=== PATIENT | female | born 1990 | race Two or more races ===

== ENCOUNTER → 2016-07-15 | Outpatient (CLI) | payer BC ==
[~2016-07-15] MED LIST: IBUP800T24 PO; SULF400T11; TRAM50TA2 PO
[2016-07-15 09:24] LABS: Basophils # (auto) 0 uL; Basophils % (auto) 0.5 % (0.0-2.0); Eosinophils # (auto) 0 uL; Eosinophils % (auto) 0.4 % (0.0-7.0); Hemoglobin 12.4 g/dL (12.2-16.2); Lymphocytes # (auto) 2.3 uL; Lymphocytes % (auto) 30.5 % (10.0-50.0); Mean Corpuscular Hemoglobin 29.8 pg (28.0-32.0); Mean Corpuscular Hgb Conc. 34.4 g/dL (32.0-36.0); Mean Corpuscular Volume 86.6 fL (80.0-100.0); Mean Platelet Volume 9.9 fL (7.4-10.4); Monocytes # (auto) 0.4 uL; Neutrophils # (auto) 4.7 uL; Neutrophils % (auto) 63.6 % (37.0-80.0); Platelet Count (auto) 229 10^3/uL (140-450); White Blood Cell 7.4 10^3/uL (4.4-10.8)
== END | disposition home or self-care (01) ==
LOC: LAB 08:39
PROVIDERS: ATTEND Obstetrics & Gynecology
DX: Z36 Encounter for antenatal screening of mother (principal); Z34.80 Encounter for supervision of other normal pregnancy, unspecified trimester; Z11.3 Encounter for screening for infections with a predominantly sexual mode of transmission
CPT/HCPCS: 36415; 81220; 83036; 85025; 86592; 86703; 86762; 86850; 86900; 86901; 87086; 87340

== ENCOUNTER → 2016-11-26 | Outpatient (CLI) | payer BC ==
[2016-11-26 08:40] LABS: Basophils # (auto) 0 uL; Basophils % (auto) 0.6 % (0.0-2.0); CONDITION Y; Eosinophils # (auto) 0.1 uL; Eosinophils % (auto) 0.8 % (0.0-7.0); Hematocrit 32.7 % (36.0-46.0); Hemoglobin 10.8 g/dL (12.2-16.2); Lymphocytes # (auto) 2.3 uL; Lymphocytes % (auto) 33.1 % (10.0-50.0); Mean Corpuscular Hemoglobin 27.5 pg (28.0-32.0); Mean Corpuscular Volume 83.4 fL (80.0-100.0); Mean Platelet Volume 9.8 fL (7.4-10.4); Monocytes # (auto) 0.4 uL; Monocytes % (auto) 5.3 % (0.0-12.0); Neutrophils # (auto) 4.2 uL; Neutrophils % (auto) 60.2 % (37.0-80.0); Platelet Count (auto) 272 10^3/uL (140-450); Red Cell Distribution Width 13.1 % (11.6-16.0); White Blood Cell 6.9 10^3/uL (4.4-10.8)
== END | disposition home or self-care (01) ==
LOC: LAB 08:16
PROVIDERS: ATTEND Obstetrics & Gynecology
DX: Z34.80 Encounter for supervision of other normal pregnancy, unspecified trimester (principal); O99.810 Abnormal glucose complicating pregnancy
CPT/HCPCS: 36415; 82951; 85025; 86850; 86900; 86901

== ENCOUNTER → 2016-12-23 | Outpatient (CLI) | payer BC ==
[2016-12-23 10:24] LABS: Basophils # (auto) 0 uL; Basophils % (auto) 0.5 % (0.0-2.0); CONDITION Y; DEFINITIVE SEE PRINTOUT; Eosinophils # (auto) 0 uL; Eosinophils % (auto) 0.4 % (0.0-7.0); Hematocrit 32.9 % (36.0-46.0); Hemoglobin 10.8 g/dL (12.2-16.2); Lymphocytes # (auto) 2.5 uL; Lymphocytes % (auto) 28.1 % (10.0-50.0); Mean Corpuscular Hemoglobin 26.5 pg (28.0-32.0); Mean Corpuscular Hgb Conc. 32.8 g/dL (32.0-36.0); Mean Corpuscular Volume 80.8 fL (80.0-100.0); Mean Platelet Volume 10.5 fL (7.4-10.4); Monocytes # (auto) 0.4 uL; Monocytes % (auto) 4.9 % (0.0-12.0); Neutrophils # (auto) 5.8 uL; Neutrophils % (auto) 66.1 % (37.0-80.0); Platelet Count (auto) 269 10^3/uL (140-450); Red Cell Distribution Width 13.9 % (11.6-16.0); White Blood Cell 8.8 10^3/uL (4.4-10.8)
[2016-12-23 12:38] LABS: Potassium 3.9 mmol/L (3.5-5.1)
[2016-12-23 12:58] LABS: Albumin 2.6 g/dL (3.4-5.0); BUN/Creatinine Ratio 14.8; Calcium 9.3 mg/dL (8.5-10.1); Uric Acid 2.6 mg/dL (2.6-6.0)
[2016-12-23 13:06] LABS: Bilirubin, Total 0.2 mg/dL (0.2-1.0); Total Protein 7.1 g/dL (6.4-8.2)
== END | disposition home or self-care (01) ==
LOC: LAB 09:00
PROVIDERS: ATTEND Obstetrics & Gynecology
DX: O10.912 Unspecified pre-existing hypertension complicating pregnancy, second trimester (principal); Z3A.00 Weeks of gestation of pregnancy not specified
CPT/HCPCS: 36415; 80053; 84156; 84550; 85025

== ENCOUNTER 2016-12-30 16:05 | Observation (INO) | payer BC ==
[2016-12-30] MEDS ORDERED: TERBUTALINE SULFATE 1 MG/ML 1ML VIAL SC PRN (16:45)
[2016-12-30] MEDS ORDERED: TERBUTALINE SULFATE 1 MG/ML 1ML VIAL SC ONE (16:49)
[2016-12-30 17:04] LABS: Basophils # (auto) 0 uL; Basophils % (auto) 0.5 % (0.0-2.0); CONDITION Y; DEFINITIVE SEE PRINTOUT; Eosinophils # (auto) 0.1 uL; Eosinophils % (auto) 0.8 % (0.0-7.0); Hemoglobin 10.2 g/dL (12.2-16.2); Lymphocytes # (auto) 2.3 uL; Lymphocytes % (auto) 32.6 % (10.0-50.0); Mean Corpuscular Hemoglobin 26.4 pg (28.0-32.0); Mean Corpuscular Volume 79.9 fL (80.0-100.0); Mean Platelet Volume 10.7 fL (7.4-10.4); Monocytes # (auto) 0.3 uL; Monocytes % (auto) 4.9 % (0.0-12.0); Neutrophils # (auto) 4.2 uL; Neutrophils % (auto) 61.2 % (37.0-80.0); Platelet Count (auto) 258 10^3/uL (140-450); Red Cell Distribution Width 14.5 % (11.6-16.0); White Blood Cell 6.9 10^3/uL (4.4-10.8)
[2016-12-30 17:16] LABS: Urine Bilirubin Negative (Negative); Urine Blood Negative /uL (Negative); Urine Color Yellow (Yellow); Urine Glucose Normal (Normal); Urine Ketone Negative (Negative); Urine Mucus FEW (None Seen); Urine Nitrite Negative (Negative); Urine RBC <1 /hpf (0 - 4); Urine Squamous Epithelial Cell FEW /hpf (<5); Urine Urobilinogen Normal (Negative)
[2016-12-30 17:20] LABS: INR 0.89 (0.9-1.15); Partial Thromboplastin Time 29.4 sec (22.64-33.71); Prothrombin Time 9.7 sec (9.37-12.3)
[2016-12-30 18:01] LABS: Albumin 2.3 g/dL (3.4-5.0); BUN/Creatinine Ratio 6.7; Bilirubin, Total 0.1 mg/dL (0.2-1.0); Calcium 8.2 mg/dL (8.5-10.1); Total Protein 6.6 g/dL (6.4-8.2); Uric Acid 3.4 mg/dL (2.6-6.0)
[2016-12-30 18:08] LABS: Potassium 3.6 mmol/L (3.5-5.1)
== END 2016-12-30 18:00 | disposition home or self-care (01) | DRG 782 ==
LOC: LDRP 16:05
PROVIDERS: ADMIT Obstetrics & Gynecology; ATTEND Obstetrics & Gynecology
DX: O13.3 Gestational [pregnancy-induced] hypertension without significant proteinuria, third trimester (principal); O60.03 Preterm labor without delivery, third trimester; Z3A.34 34 weeks gestation of pregnancy
CPT/HCPCS: 36415; 59025; 76818; 80053; 81001; 81002; 84550; 85025; 85362; 85610; 85730; 96372; G0378; J3105

== ENCOUNTER 2017-01-06 13:40 | Observation (INO) | payer BC | END 2017-01-06 15:35 | disposition home or self-care (01) | DRG 781 | LOC: LDRP 13:40 | PROVIDERS: ADMIT Obstetrics & Gynecology; ATTEND Obstetrics & Gynecology | DX: O26.893 Other specified pregnancy related conditions, third trimester (principal); O60.03 Preterm labor without delivery, third trimester; Z3A.35 35 weeks gestation of pregnancy | CPT/HCPCS: 59025; 76818; 81002; G0378 ==

== ENCOUNTER 2017-01-09 14:15 | Observation (INO) | payer BC ==
[2017-01-09] MEDS ORDERED: FERR1TAB5 PO (16:02)
[2017-01-09] MEDS ORDERED: PREN-96 PO (16:02)
== END 2017-01-09 17:05 | disposition home or self-care (01) | DRG 778 ==
LOC: LDRP 14:15
PROVIDERS: ADMIT Obstetrics & Gynecology; ATTEND Obstetrics & Gynecology
DX: O60.03 Preterm labor without delivery, third trimester (principal); Z3A.36 36 weeks gestation of pregnancy
CPT/HCPCS: 59025; 76818; 81002; G0378

== ENCOUNTER 2017-01-12 08:30 | Observation (INO) | payer BC ==
[~2017-01-12 08:30] MED LIST changes: +FERR1TAB5 PO; +PREN-96 PO; -SULF400T11
[2017-01-12 09:48] LABS: Basophils # (auto) 0 uL; Basophils % (auto) 0.7 % (0.0-2.0); CONDITION Y; DEFINITIVE SEE PRINTOUT; Eosinophils # (auto) 0.1 uL; Eosinophils % (auto) 0.9 % (0.0-7.0); Hematocrit 33.3 % (36.0-46.0); Hemoglobin 10.9 g/dL (12.2-16.2); Lymphocytes # (auto) 2.4 uL; Lymphocytes % (auto) 35.3 % (10.0-50.0); Mean Corpuscular Hemoglobin 26.2 pg (28.0-32.0); Mean Corpuscular Hgb Conc. 32.8 g/dL (32.0-36.0); Mean Platelet Volume 11.5 fL (7.4-10.4); Monocytes # (auto) 0.3 uL; Monocytes % (auto) 5.1 % (0.0-12.0); Neutrophils # (auto) 3.9 uL; Platelet Count (auto) 233 10^3/uL (140-450); Red Cell Distribution Width 16.2 % (11.6-16.0); SUSPECT SEE PRINTOUT; White Blood Cell 6.7 10^3/uL (4.4-10.8)
[2017-01-12 10:10] LABS: INR 0.9 (0.9-1.15); Partial Thromboplastin Time 28.2 sec (22.64-33.71); Prothrombin Time 9.8 sec (9.37-12.3)
[2017-01-12] MEDS ORDERED: TERBUTALINE SULFATE 1 MG/ML 1ML VIAL SC PRN (10:15)
[2017-01-12 10:18] LABS: Albumin 2.5 g/dL (3.4-5.0); BUN/Creatinine Ratio 16.7; Calcium 8.8 mg/dL (8.5-10.1); Potassium 4.3 mmol/L (3.5-5.1)
[2017-01-12 10:52] LABS: Bilirubin, Total 0.3 mg/dL (0.2-1.0); Total Protein 6.8 g/dL (6.4-8.2); Uric Acid 4.7 mg/dL (2.6-6.0)
== END 2017-01-12 11:45 | disposition home or self-care (01) | DRG 782 ==
LOC: LDRP 08:30
PROVIDERS: ADMIT Obstetrics & Gynecology; ATTEND Obstetrics & Gynecology
DX: O13.3 Gestational [pregnancy-induced] hypertension without significant proteinuria, third trimester (principal); Z3A.36 36 weeks gestation of pregnancy
CPT/HCPCS: 36415; 59025; 76818; 80053; 81002; 84550; 85025; 85610; 85730; 96372; G0378; J3105

== ENCOUNTER 2017-01-14 07:00 | Observation (INO) | payer BC ==
[~2017-01-14 07:00] MED LIST changes: -IBUP800T24 PO
[2017-01-14] MEDS ORDERED: LABE100T PO (07:51)
[2017-01-14] MEDS ORDERED: FERR325T PO (08:01)
[2017-01-14 08:03] LABS: Basophils # (auto) 0 uL; Basophils % (auto) 0.7 % (0.0-2.0); CONDITION Y; DEFINITIVE SEE PRINTOUT; Eosinophils # (auto) 0 uL; Eosinophils % (auto) 0.8 % (0.0-7.0); Hematocrit 31.2 % (36.0-46.0); Hemoglobin 10.2 g/dL (12.2-16.2); Lymphocytes # (auto) 2.3 uL; Lymphocytes % (auto) 37.3 % (10.0-50.0); Mean Corpuscular Hemoglobin 26.4 pg (28.0-32.0); Mean Corpuscular Hgb Conc. 32.7 g/dL (32.0-36.0); Mean Corpuscular Volume 80.7 fL (80.0-100.0); Mean Platelet Volume 11.2 fL (7.4-10.4); Monocytes # (auto) 0.3 uL; Monocytes % (auto) 4.4 % (0.0-12.0); Neutrophils # (auto) 3.5 uL; Neutrophils % (auto) 56.8 % (37.0-80.0); Platelet Count (auto) 215 10^3/uL (140-450); Red Cell Distribution Width 17.2 % (11.6-16.0); SUSPECT SEE PRINTOUT; White Blood Cell 6.2 10^3/uL (4.4-10.8)
[2017-01-14 08:25] LABS: INR 0.9 (0.9-1.15); Partial Thromboplastin Time 28.7 sec (22.64-33.71); Prothrombin Time 9.8 sec (9.37-12.3)
[2017-01-14 08:26] LABS: Urine Bilirubin Negative (Negative); Urine Blood Negative /uL (Negative); Urine Color Yellow (Yellow); Urine Glucose Normal (Normal); Urine Ketone Negative (Negative); Urine Mucus FEW (None Seen); Urine Nitrite Negative (Negative); Urine RBC 1 /hpf (0 - 4); Urine Squamous Epithelial Cell MANY /hpf (<5); Urine Urobilinogen Normal (Negative); Urine pH 6.5 (5.0-8.0)
[2017-01-14 08:28] LABS: Albumin 2.3 g/dL (3.4-5.0); BUN/Creatinine Ratio 12.1; Bilirubin, Total 0.2 mg/dL (0.2-1.0); Calcium 8.5 mg/dL (8.5-10.1); Potassium 3.9 mmol/L (3.5-5.1); Total Protein 6.5 g/dL (6.4-8.2); Uric Acid 4.2 mg/dL (2.6-6.0)
== END 2017-01-14 10:40 | disposition home or self-care (01) | DRG 781 ==
LOC: LDRP 07:00
PROVIDERS: ADMIT Obstetrics & Gynecology; ATTEND Obstetrics & Gynecology
DX: O13.3 Gestational [pregnancy-induced] hypertension without significant proteinuria, third trimester (principal); O21.2 Late vomiting of pregnancy; Z3A.36 36 weeks gestation of pregnancy
CPT/HCPCS: 36415; 59025; 76818; 80053; 81001; 81002; 84156; 84550; 85025; 85362; 85379; 85610; 85730; G0378

== ENCOUNTER 2017-01-18 08:05 | Observation (INO) | payer BC ==
[~2017-01-18 08:05] MED LIST changes: -FERR1TAB5 PO; +FERR325T PO; +LABE100T PO; -TRAM50TA2 PO
[2017-01-18 09:39] LABS: Basophils # (auto) 0 uL; Basophils % (auto) 0.5 % (0.0-2.0); CONDITION Y; DEFINITIVE SEE PRINTOUT; Eosinophils # (auto) 0.1 uL; Eosinophils % (auto) 0.8 % (0.0-7.0); Hematocrit 31.4 % (36.0-46.0); Hemoglobin 10.3 g/dL (12.2-16.2); Lymphocytes % (auto) 30.5 % (10.0-50.0); Mean Corpuscular Hemoglobin 26.4 pg (28.0-32.0); Mean Corpuscular Hgb Conc. 32.7 g/dL (32.0-36.0); Mean Corpuscular Volume 80.6 fL (80.0-100.0); Monocytes # (auto) 0.3 uL; Monocytes % (auto) 4.3 % (0.0-12.0); Neutrophils # (auto) 4.2 uL; Neutrophils % (auto) 63.9 % (37.0-80.0); Platelet Count (auto) 217 10^3/uL (140-450); Red Cell Distribution Width 17.3 % (11.6-16.0); SUSPECT SEE PRINTOUT; White Blood Cell 6.6 10^3/uL (4.4-10.8)
[2017-01-18 09:53] LABS: INR 0.86 (0.9-1.15); Partial Thromboplastin Time 28.8 sec (22.64-33.71); Prothrombin Time 9.4 sec (9.37-12.3)
[2017-01-18 10:02] LABS: Albumin 2.4 g/dL (3.4-5.0); BUN/Creatinine Ratio 11.7; Bilirubin, Total 0.3 mg/dL (0.2-1.0); Calcium 8.1 mg/dL (8.5-10.1); Potassium 3.3 mmol/L (3.5-5.1); Total Protein 6.5 g/dL (6.4-8.2); Uric Acid 4.2 mg/dL (2.6-6.0)
== END 2017-01-18 10:15 | disposition home or self-care (01) | DRG 781 ==
LOC: LDRP 08:05
PROVIDERS: ADMIT Specialist; ATTEND Specialist
DX: O26.893 Other specified pregnancy related conditions, third trimester (principal); Z3A.37 37 weeks gestation of pregnancy
CPT/HCPCS: 36415; 59025; 80053; 81002; 84550; 85025; 85610; 85730; G0378

== ENCOUNTER 2017-01-21 11:00 | Inpatient (IN) | payer BC ==
[~2017-01-21] VITALS: Ht 157.5 cm; Wt 77.1 kg
[2017-01-21 12:52] LABS: Basophils # (auto) 0 uL; Basophils % (auto) 0.5 % (0.0-2.0); Eosinophils # (auto) 0 uL; Eosinophils % (auto) 0.6 % (0.0-7.0); Hematocrit 33.4 % (36.0-46.0); Hemoglobin 10.9 g/dL (12.2-16.2); Lymphocytes # (auto) 1.7 uL; Mean Corpuscular Hemoglobin 26.3 pg (28.0-32.0); Mean Corpuscular Hgb Conc. 32.5 g/dL (32.0-36.0); Mean Platelet Volume 10.6 fL (6.9-10.8); Monocytes # (auto) 0.4 uL; Monocytes % (auto) 5.4 % (0.0-12.0); Neutrophils # (auto) 5.1 uL; Neutrophils % (auto) 70.5 % (37.0-80.0); Nucleated Red Blood Cells % 0.1 %; Platelet Count (auto) 198 10^3/uL (140-450); Red Cell Distribution Width 17.1 % (11.8-14.3); White Blood Cell 7.2 10^3/uL (4.4-10.8)
[2017-01-21 13:06] LABS: INR 0.86 (0.9-1.15); Partial Thromboplastin Time 29.2 sec (22.64-33.71); Prothrombin Time 9.4 sec (9.37-12.3)
[2017-01-21 13:21] LABS: Albumin 2.5 g/dL (3.4-5.0); BUN/Creatinine Ratio 15.6; Bilirubin, Total 0.3 mg/dL (0.2-1.0); Calcium 8.4 mg/dL (8.5-10.1); Potassium 4.1 mmol/L (3.5-5.1); Total Protein 6.9 g/dL (6.4-8.2); Uric Acid 3.8 mg/dL (2.6-6.0)
[2017-01-21 13:55] LABS: Urine Bilirubin Negative (Negative); Urine Blood Negative /uL (Negative); Urine Color Yellow (Yellow); Urine Glucose Normal (Normal); Urine Ketone Negative (Negative); Urine Mucus FEW (None Seen); Urine Nitrite Negative (Negative); Urine RBC 3 /hpf (0 - 4); Urine Squamous Epithelial Cell MANY /hpf (<5); Urine Urobilinogen Normal (Negative); Urine pH 6.5 (5.0-8.0)
[2017-01-21] MEDS ORDERED: LABETALOL HCL 200 MG TAB ONE (14:00)
[2017-01-21] MEDS ORDERED: LABETALOL HCL 200 MG TAB PO ONE (14:15)
[2017-01-21] MEDS ORDERED: LACT. RINGERS/OXYTOCIN 20UNITS 1,000 ML IV SCH ×2 (16:38→21:41)
[2017-01-21] MEDS ORDERED: LACTATED RINGER'S 1,000 ML IV SCH ×3 (16:38→21:41)
[2017-01-21] MEDS ORDERED: METHYLERGONOVINE MALEATE 0.2 MG/ML AMP IM PRN (16:45)
[2017-01-21] MEDS ORDERED: NALBUPHINE HCL 10 MG/1ml INJECTION IV PRN (16:45)
[2017-01-21] MEDS ORDERED: hydrALAZINE HCL 20 MG/ML VL IV PRN (16:45)
[2017-01-21] MEDS ORDERED: DERMOPLAST 60ML BOTTLE TOP PRN (16:45)
[2017-01-21] MEDS ORDERED: PHISODERM TOP SOLN 240ML BTL TOP PRN (16:45)
[2017-01-21] MEDS ORDERED: LIDOCAINE 2%HCL (LOCAL ANESTH.) INJ 20ML MDV IJ ONE ×2 (16:45→20:20)
[2017-01-21] MEDS ORDERED: WITCH HAZEL-GLYCERIN PAD TOP PRN (16:45)
[2017-01-21] MEDS ORDERED: LIDOCAINE 2%HCL (LOCAL ANESTH.) INJ 20ML MDV ONE (20:26)
[2017-01-21] MEDS ORDERED: ACETAMINOPHEN 325 MG TAB PO ONE (21:23)
[2017-01-21] MEDS ORDERED: MAGNESIUM SULFATE 40MG/ML 1,000 ML IV SCH (21:41)
[2017-01-21] MEDS ORDERED: TERBUTALINE SULFATE 1 MG/ML 1ML VIAL SC ONE (21:45)
[2017-01-21] MEDS ORDERED: fentaNYL CITRATE 100 MCG/2 ML VL IV ONE (22:00)
[2017-01-21] MEDS ORDERED: fentaNYL W ROPIVACAINE 150 ML EPI SCH (22:00)
[2017-01-21] MEDS ORDERED: ePHEDrine SULFATE 50 MG/ML AMP IV ONE (22:00)
[2017-01-21] MEDS ORDERED: NALOXONE HCL 0.4 MG/ML VIAL IV ONE (22:00)
[2017-01-21] MEDS ORDERED: LIDOCAINE HCL 2 %PF INJ 10ML AMP IJ ONE (22:00)
[2017-01-22] VITALS (7 sets, daily range): BP systolic 99–126; BP diastolic 56–81
[2017-01-22] MEDS ORDERED: ONDANSETRON HCL 4 MG/2 ML VIAL IV PRN (07:45)
[2017-01-22] MEDS ORDERED: RHO (D) IMMUNE GLOBULIN 300 MCG INJ IM ONE (08:30)
[2017-01-22] MEDS: IBUPROFEN 600 MG TAB PO PRN ×4 (09:30→23:18)
[2017-01-22] MEDS: DOCUSATE CALCIUM 240 MG CAP PO SCH (10:00)
[2017-01-22] MEDS ORDERED: MAGNESIUM SULFATE 40MG/ML 1,000 ML IV SCH (11:14)
[2017-01-22] MEDS: ACETAMINOPHEN 325 MG TAB PO PRN (16:47)
[2017-01-22] MEDS ORDERED: LACTATED RINGER'S 1,000 ML IV SCH (21:41)
[2017-01-23] VITALS (7 sets, daily range): BP systolic 101–125; BP diastolic 59–88
[2017-01-23] MEDS: ACETAMINOPHEN 325 MG TAB PO PRN ×4 (00:29→19:28)
[2017-01-23] MEDS: IBUPROFEN 600 MG TAB PO PRN ×3 (08:02→21:00)
[2017-01-23] MEDS: DOCUSATE CALCIUM 240 MG CAP PO SCH (10:36)
[2017-01-24 00:21] LABS: Urine Bilirubin Negative (Negative); Urine Blood 2+ /uL (Negative); Urine Color Yellow (Yellow); Urine Glucose Normal (Normal); Urine Ketone Negative (Negative); Urine Nitrite Negative (Negative); Urine RBC 896 /hpf (0 - 4); Urine Squamous Epithelial Cell FEW /hpf (<5); Urine Urobilinogen Normal (Negative); Urine pH 6.5 (5.0-8.0)
[2017-01-24] MEDS: ACETAMINOPHEN 325 MG TAB PO PRN (03:00)
[2017-01-24 03:21] VITALS: BP 123/71
[2017-01-24] MEDS: IBUPROFEN 600 MG TAB PO PRN (05:50)
[2017-01-24 07:00] VITALS: BP 129/75
[2017-01-24] MEDS: DOCUSATE CALCIUM 240 MG CAP PO SCH (10:36)
== END 2017-01-24 11:38 | disposition home or self-care (01) | DRG 774 ==
LOC: LDRP 11:00 → OBSVTOIN 11:00 → LDRP 16:35
PROVIDERS: ADMIT Obstetrics & Gynecology; ATTEND Obstetrics & Gynecology
PROC: 10E0XZZ Delivery of Products of Conception, External Approach (ICD-10-PCS; principal; 2017-01-22)
PROC: 0KQM0ZZ Repair Perineum Muscle, Open Approach (ICD-10-PCS; 2017-01-22)
PROC: 30233S1 Transfusion of Nonautologous Globulin into Peripheral Vein, Percutaneous Approach (ICD-10-PCS; 2017-01-22)
PROC: 3E0S3CZ (ICD-10-PCS; 2017-01-22)
PROC: 00HU33Z Insertion of Infusion Device into Spinal Canal, Percutaneous Approach (ICD-10-PCS; 2017-01-22)
PROC: 0W8NXZZ Division of Female Perineum, External Approach (ICD-10-PCS; 2017-01-22)
PROC: 4A0HXCZ Measurement of Products of Conception, Cardiac Rate, External Approach (ICD-10-PCS; 2017-01-22)
PROC: 10907ZC Drainage of Amniotic Fluid, Therapeutic from Products of Conception, Via Natural or Artificial Opening (ICD-10-PCS; 2017-01-22)
PROC: 3E033VJ Introduction of Other Hormone into Peripheral Vein, Percutaneous Approach (ICD-10-PCS; 2017-01-22)
DX: O14.93 Unspecified pre-eclampsia, third trimester (principal); O60.14X0 Preterm labor third trimester with preterm delivery third trimester, not applicable or unspecified; O13.4 Gestational [pregnancy-induced] hypertension without significant proteinuria, complicating childbirth; Z37.0 Single live birth; Z3A.37 37 weeks gestation of pregnancy
CPT/HCPCS: 36415; 51702; 59025; 59409; 62282; 76818; 80053; 81001; 81002; 83735; 84550; 85025; 85610; 85730; 86850; 86900; 86901; 90384; 96361; 96365; 96366; 96372; J2590; J3010

== ENCOUNTER 2017-09-14 18:26 | Emergency (ER) | payer BC ==
[~2017-09-14] VITALS: Ht 157.5 cm; Wt 68.9 kg
[~2017-09-14 18:26] MED LIST changes: +FERR-20 PO; -FERR325T PO
[2017-09-14 19:27] LABS: Basophils # (auto) 0.1 uL; Basophils % (auto) 0.7 % (0.0-2.0); Eosinophils # (auto) 0.1 uL; Eosinophils % (auto) 0.9 % (0.0-7.0); Hemoglobin 12.4 g/dL (12.2-16.2); Lymphocytes # (auto) 1.9 uL; Lymphocytes % (auto) 22.8 % (10.0-50.0); Mean Corpuscular Hemoglobin 27.8 pg (28.0-32.0); Mean Corpuscular Hgb Conc. 32.5 g/dL (32.0-36.0); Mean Corpuscular Volume 85.6 fL (80.0-100.0); Monocytes # (auto) 0.4 uL; Monocytes % (auto) 5.3 % (0.0-12.0); Neutrophils # (auto) 5.8 uL; Neutrophils % (auto) 70.3 % (37.0-80.0); Platelet Count (auto) 216 10^3/uL (140-450); Red Blood Cells 4.44 10^6/uL (4.0-5.20); Red Cell Distribution Width 14.6 % (11.8-14.3); White Blood Cell 8.2 10^3/uL (4.4-10.8)
[2017-09-14 19:42] LABS: Urine Bacteria NONE SEEN /hpf (None Seen); Urine Blood 2+ /uL (Negative); Urine Mucus FEW (None Seen); Urine Specific Gravity 1.032 (1.001-1.035); Urine WBC 8 /hpf (0 - 5)
[2017-09-14 19:44] LABS: Albumin 3.5 g/dL (3.4-5.0); BUN/Creatinine Ratio 16.2; Calcium 8.4 mg/dL (8.5-10.1); Potassium 3.8 mmol/L (3.5-5.1)
[2017-09-14 19:47] LABS: Bilirubin, Total 0.2 mg/dL (0.2-1.0); Total Protein 7.8 g/dL (6.4-8.2)
[2017-09-15 03:02] VITALS: BP 131/79
== END 2017-09-15 03:05 | disposition home or self-care (01) ==
LOC: ER 18:26
DX: O20.0 Threatened abortion (principal); Z3A.01 Less than 8 weeks gestation of pregnancy
CPT/HCPCS: 36415; 76801; 76817; 80053; 81001; 84702; 85025

== ENCOUNTER → 2017-09-16 | Outpatient (CLI) | payer BC | END | disposition home or self-care (01) | LOC: LAB 14:52 | PROVIDERS: ATTEND Emergency Medicine | DX: O20.0 Threatened abortion (principal) | CPT/HCPCS: 36415; 84702 ==

== ENCOUNTER 2019-12-19 18:50 | Emergency (ER) | payer BC ==
[~2019-12-19] VITALS: Ht 157.5 cm; Wt 63.5 kg
[~2019-12-19 18:50] MED LIST changes: -LABE100T PO; +LABE100T4 PO
[2019-12-19 23:12] LABS: Basophils # (auto) 0 10 ^3/uL (0-0.2); Basophils % (auto) 0.3 % (0.0-2.0); Eosinophils # (auto) 0 10 ^3/uL (0-0.8); Hematocrit 39.1 % (36.0-46.0); Hemoglobin 12.7 g/dL (12.2-16.2); Lymphocytes # (auto) 0.8 10 ^3/uL (0.4-5.4); Lymphocytes % (auto) 9.3 % (10.0-50.0); Mean Corpuscular Hemoglobin 29.7 pg (28.0-32.0); Mean Corpuscular Hgb Conc. 32.4 g/dL (32.0-36.0); Mean Corpuscular Volume 91.6 fL (80.0-100.0); Monocytes # (auto) 0.4 10 ^3/uL (0-1.3); Neutrophils # (auto) 7.7 10 ^3/uL (1.6-8.6); Neutrophils % (auto) 86.4 % (37.0-80.0); Platelet Count (auto) 242 10^3/uL (140-450); Red Blood Cells 4.27 10^6/uL (4.0-5.20); Red Cell Distribution Width 13.1 % (11.8-14.3); White Blood Cell 8.9 10^3/uL (4.4-10.8)
[2019-12-19 23:29] LABS: Albumin 3.7 g/dL (3.4-5.0); BUN/Creatinine Ratio 8.7; Calcium 8.6 mg/dL (8.5-10.1); Potassium 3.7 mmol/L (3.5-5.1)
[2019-12-19 23:33] LABS: Bilirubin, Total 0.3 mg/dL (0.2-1.0); Total Protein 7.6 g/dL (6.4-8.2)
[2019-12-20] MEDS ORDERED: METHYLERGONOVINE MALEATE 0.2 MG/ML AMP IM ONE (00:30)
[2019-12-20] MEDS ORDERED: IBUPROFEN 800 MG TAB PO ONE (01:15)
[2019-12-20 02:00] VITALS: BP 124/74
== END 2019-12-20 03:02 | disposition home or self-care (01) ==
LOC: ER 18:50 → EEVIPCON 18:50 → ER 12-20 03:02
DX: O03.4 Incomplete spontaneous abortion without complication (principal)
CPT/HCPCS: 36415; 76801; 76817; 80053; 84702; 85025; 96372; 99284; J2210

== ENCOUNTER 2019-12-23 04:22 | Day surgery (SDC) | payer BC ==
[~2019-12-23] VITALS: Ht 157.5 cm; Wt 62.6 kg
[2019-12-23] MEDS ORDERED: LACTATED RINGER'S 1,000 ML IV ONE (07:00)
[2019-12-23 07:55] LABS: Basophils # (auto) 0 10 ^3/uL (0-0.2); Basophils % (auto) 0.7 % (0.0-2.0); Eosinophils # (auto) 0.1 10 ^3/uL (0-0.8); Eosinophils % (auto) 1.1 % (0.0-7.0); Hematocrit 34.9 % (36.0-46.0); Hemoglobin 11.4 g/dL (12.2-16.2); Lymphocytes # (auto) 2.8 10 ^3/uL (0.4-5.4); Lymphocytes % (auto) 51.1 % (10.0-50.0); Mean Corpuscular Hemoglobin 29.4 pg (28.0-32.0); Mean Corpuscular Hgb Conc. 32.6 g/dL (32.0-36.0); Mean Corpuscular Volume 90.3 fL (80.0-100.0); Monocytes # (auto) 0.4 10 ^3/uL (0-1.3); Monocytes % (auto) 6.8 % (0.0-12.0); Neutrophils # (auto) 2.2 10 ^3/uL (1.6-8.6); Neutrophils % (auto) 40.3 % (37.0-80.0); Platelet Count (auto) 257 10^3/uL (140-450); Red Blood Cells 3.87 10^6/uL (4.0-5.20); Red Cell Distribution Width 13.1 % (11.8-14.3); White Blood Cell 5.5 10^3/uL (4.4-10.8)
[2019-12-23 08:10] LABS: Albumin 3.3 g/dL (3.4-5.0); Calcium 8.1 mg/dL (8.5-10.1); Potassium 3.3 mmol/L (3.5-5.1)
[2019-12-23 08:14] LABS: INR 1.03 (0.9-1.15); Partial Thromboplastin Time 26.2 sec (23.0-31.2)
[2019-12-23 08:18] LABS: Bilirubin, Total 0.3 mg/dL (0.2-1.0); Total Protein 7.1 g/dL (6.4-8.2)
[2019-12-23 09:38] LABS: Urine Bacteria NONE SEEN /hpf (None Seen); Urine Blood 2+ /uL (Negative); Urine Mucus MODERATE (None Seen); Urine Specific Gravity 1.025 (1.001-1.035); Urine WBC 17 /hpf (0 - 5)
[2019-12-23] MEDS ORDERED: ceFAZolin 1GM/50ML 50 ML IV ONE (11:09)
[2019-12-23] MEDS ORDERED: DexAMETHasone SOD PHOS 10MG/1ML VIAL INJ IV ONE (11:18)
[2019-12-23] MEDS ORDERED: MEPERIDINE HCL (25 MG/ML) 1ML VIAL ONE (11:38)
[2019-12-23] MEDS ORDERED: fentaNYL CITRATE 100 MCG/2 ML VL ONE (11:38)
[2019-12-23] MEDS ORDERED: MIDAZOLAM HCL 1MG/1ML-2 ML VIAL ONE (11:38)
[2019-12-23] MEDS ORDERED: PROPOFOL 10 MG/ML 20 ML IV ONE (11:45)
[2019-12-23] MEDS ORDERED: oxyTOCIN 10 UNIT/ML 10ML VIAL ONE (11:48)
[2019-12-23] MEDS ORDERED: LACTATED RINGER'S 1,000 ML IV SCH (12:03)
[2019-12-23] MEDS ORDERED: ONDANSETRON HCL 4 MG/2 ML VIAL IV PRN ×2 (12:15→12:30)
[2019-12-23] MEDS ORDERED: MORPHINE SULFATE 4 MG/ML SYR/VIAL IV PRN (12:30)
[2019-12-23] MEDS ORDERED: HYDROmorphone HCL 2 MG/ML VL IV PRN (12:30)
[2019-12-23] MEDS ORDERED: ePHEDrine SULFATE 50 MG/ML AMP IV PRN (12:30)
[2019-12-23] MEDS ORDERED: LABETALOL HCL 5 MG/ML 4ML SYRINGE IV PRN (12:30)
[2019-12-23] MEDS ORDERED: MIDAZOLAM HCL 1MG/1ML-2 ML VIAL IV PRN (12:30)
[2019-12-23 12:35] VITALS: BP 119/53
== END 2019-12-23 13:00 | disposition home or self-care (01) ==
LOC: ER 04:22 → OR 1 04:23 → ER 10:51 → OR 1 13:00
PROVIDERS: ATTEND Specialist
DX: O03.4 Incomplete spontaneous abortion without complication (principal); Z79.899 Other long term (current) drug therapy; Z98.890 Other specified postprocedural states
CPT/HCPCS: 36415; 59812; 80053; 81001; 84702; 85025; 85610; 85730; 86850; 86870; 86900; 86901; J0690; J1100; J2175; J2250; J2590; J2704; J3010

== ENCOUNTER → 2020-01-10 | Outpatient (CLI) | payer BC ==
[2020-01-10 17:16] LABS: Basophils # (auto) 0.1 10 ^3/uL (0-0.2); Eosinophils # (auto) 0.1 10 ^3/uL (0-0.8); Eosinophils % (auto) 1.1 % (0.0-7.0); Hematocrit 36.8 % (36.0-46.0); Hemoglobin 12.1 g/dL (12.2-16.2); Lymphocytes # (auto) 1.9 10 ^3/uL (0.4-5.4); Lymphocytes % (auto) 34.3 % (10.0-50.0); Mean Corpuscular Hemoglobin 29.3 pg (28.0-32.0); Mean Corpuscular Hgb Conc. 32.9 g/dL (32.0-36.0); Monocytes # (auto) 0.3 10 ^3/uL (0-1.3); Monocytes % (auto) 5.4 % (0.0-12.0); Neutrophils # (auto) 3.2 10 ^3/uL (1.6-8.6); Neutrophils % (auto) 58.2 % (37.0-80.0); Platelet Count (auto) 229 10^3/uL (140-450); Red Blood Cells 4.13 10^6/uL (4.0-5.20); Red Cell Distribution Width 13.5 % (11.8-14.3); White Blood Cell 5.5 10^3/uL (4.4-10.8)
[2020-01-10 17:33] LABS: Urine Amorphous Crystal FEW /hpf (None Seen); Urine Bacteria FEW /hpf (None Seen); Urine Blood TRACE /uL (Negative); Urine Mucus FEW (None Seen); Urine WBC 3 /hpf (0 - 5)
[2020-01-10 17:37] LABS: Albumin 3.6 g/dL (3.4-5.0); Alcohol, Urine < 3.0 mg/dL (0-10); Amphetamine Screen, Urine NEGATIVE (NEGATIVE); Barbiturate Scree,Urine NEGATIVE (NEGATIVE); Benzodiazephine Screen, Urine NEGATIVE (NEGATIVE); Calcium 8.4 mg/dL (8.5-10.1); Cannabinoid Screen, Urine NEGATIVE (NEGATIVE); Cocaine Screen, Urine NEGATIVE (NEGATIVE); Magnesium 1.9 mg/dL (1.6-2.6); Opiate Scree,Urine NEGATIVE (NEGATIVE); Phencyclidine Screen, Urine NEGATIVE (NEGATIVE); Potassium 3.7 mmol/L (3.5-5.1)
[2020-01-10 17:39] LABS: BUN/Creatinine Ratio 16.4
[2020-01-10 17:41] LABS: Bilirubin, Total 0.2 mg/dL (0.2-1.0); Total Protein 7.5 g/dL (6.4-8.2)
[2020-01-10 17:50] LABS: Thyroid Stimulating Hormone 0.78 uIU/mL (0.358-3.74)
== END | disposition home or self-care (01) ==
LOC: LAB 16:57
PROVIDERS: ATTEND Internal Medicine
DX: I47.1 Supraventricular tachycardia (principal); F41.9 Anxiety disorder, unspecified
CPT/HCPCS: 36415; 80053; 80307; 81001; 83735; 84439; 84443; 84702; 85025; 85652

== ENCOUNTER 2020-03-05 00:58 | Emergency (ER) | payer BC ==
[~2020-03-05] VITALS: Ht 157.5 cm; Wt 61.2 kg
[2020-03-05] MEDS ORDERED: dilTIAZem 25 MG/5 ML VIAL IV ONE (01:30)
[2020-03-05 02:21] LABS: Basophils # (auto) 0 10 ^3/uL (0-0.2); Basophils % (auto) 0.2 % (0.0-2.0); Eosinophils # (auto) 0 10 ^3/uL (0-0.8); Eosinophils % (auto) 0.1 % (0.0-7.0); Hematocrit 42.4 % (36.0-46.0); Hemoglobin 14.1 g/dL (12.2-16.2); Lymphocytes # (auto) 1.5 10 ^3/uL (0.4-5.4); Lymphocytes % (auto) 16.7 % (10.0-50.0); Mean Corpuscular Hemoglobin 28.3 pg (28.0-32.0); Mean Corpuscular Hgb Conc. 33.3 g/dL (32.0-36.0); Mean Corpuscular Volume 84.9 fL (80.0-100.0); Monocytes # (auto) 0.4 10 ^3/uL (0-1.3); Monocytes % (auto) 4.8 % (0.0-12.0); Neutrophils # (auto) 6.9 10 ^3/uL (1.6-8.6); Neutrophils % (auto) 78.2 % (37.0-80.0); Nucleated Red Blood Cells % 0.1 %; Platelet Count (auto) 210 10^3/uL (140-450); White Blood Cell 8.9 10^3/uL (4.4-10.8)
[2020-03-05 02:40] LABS: Alanine Aminotransferase 33 U/L (13-56); Albumin 4.6 g/dL (3.4-5.0); Anion Gap 13 (5-15); Aspartate Aminotransferase 22 U/L (15-37); BUN/Creatinine Ratio 5.4; Blood Urea Nitrogen 5 mg/dL (7-18); Calcium 8.3 mg/dL (8.5-10.1); Carbon Dioxide 19 mmol/L (21-32); Chloride 107 mmol/L (98-107); GFR African American 92 mL/min; GFR Non-African American 76 mL/min; Glucose 89 mg/dL (74-106); Potassium 3.3 mmol/L (3.5-5.1); Sodium 139 mmol/L (136-145)
[2020-03-05 02:45] LABS: Alkaline Phosphatase 88 U/L (45-117); Bilirubin, Total 0.3 mg/dL (0.2-1.0)
[2020-03-05] MEDS ORDERED: POTASSIUM CHL 20 Meq TABLET PO ONE (04:00)
[2020-03-05 05:43] VITALS: BP 101/64
== END 2020-03-05 05:50 | disposition home or self-care (01) ==
LOC: ER 00:58 → EEVIPCON 00:58 → ER 05:50
DX: R00.0 Tachycardia, unspecified (principal); E87.6 Hypokalemia; F41.9 Anxiety disorder, unspecified
CPT/HCPCS: 36415; 80053; 84484; 85025; 93005; 96374

== ENCOUNTER → 2020-03-15 | Outpatient (CLI) | payer BC ==
[2020-03-15 07:54] LABS: Basophils # (auto) 0 10 ^3/uL (0-0.2); Basophils % (auto) 0.6 % (0.0-2.0); Eosinophils # (auto) 0.1 10 ^3/uL (0-0.8); Eosinophils % (auto) 1.2 % (0.0-7.0); Hematocrit 37.4 % (36.0-46.0); Hemoglobin 12.2 g/dL (12.2-16.2); Lymphocytes # (auto) 2.1 10 ^3/uL (0.4-5.4); Lymphocytes % (auto) 42.6 % (10.0-50.0); Mean Corpuscular Hgb Conc. 32.7 g/dL (32.0-36.0); Mean Corpuscular Volume 85.5 fL (80.0-100.0); Monocytes # (auto) 0.4 10 ^3/uL (0-1.3); Monocytes % (auto) 8.1 % (0.0-12.0); Neutrophils # (auto) 2.4 10 ^3/uL (1.6-8.6); Neutrophils % (auto) 47.5 % (37.0-80.0); Platelet Count (auto) 190 10^3/uL (140-450); Red Blood Cells 4.37 10^6/uL (4.0-5.20); Red Cell Distribution Width 13.8 % (11.8-14.3)
[2020-03-15 08:03] LABS: Urine Bacteria FEW /hpf (None Seen); Urine Blood 3+ /uL (Negative); Urine Specific Gravity 1.007 (1.001-1.035); Urine WBC 12 /hpf (0 - 5)
[2020-03-15 08:51] LABS: Albumin 4.1 g/dL (3.4-5.0); Calcium 8.9 mg/dL (8.5-10.1); Potassium 3.4 mmol/L (3.5-5.1)
[2020-03-15 08:55] LABS: BUN/Creatinine Ratio 8.6; Bilirubin, Total 0.3 mg/dL (0.2-1.0); Total Protein 7.6 g/dL (6.4-8.2)
[2020-03-15 09:24] LABS: Leuteinizing Hormone 6.5 IU/L; Prolactin 10.89 ng/mL (2.8-29.2)
[2020-03-15 09:25] LABS: Folate (Folic Acid) > 24.00 ng/mL (5.38-24); Follicle Stimulating Hormone 6.89 IU/L (SEE BELOW)
[2020-03-15 10:21] LABS: Hepatitis A Total Antibody Positive
[2020-03-15 13:20] LABS: Hepatitis C Antibody Negative (Negative)
[2020-03-15 13:21] LABS: Hepatitis B Core Total AB Negative
[2020-03-15 13:22] LABS: Hepatitis B Surface Antibody Positive; Hepatitis B Surface Antigen Negative (Negative)
== END | disposition home or self-care (01) ==
LOC: LAB 07:22
PROVIDERS: ATTEND Internal Medicine
DX: Z76.89 Persons encountering health services in other specified circumstances (principal); Z00.00 Encounter for general adult medical examination without abnormal findings; E61.2 Magnesium deficiency; E79.0 Hyperuricemia without signs of inflammatory arthritis and tophaceous disease; E55.9 Vitamin D deficiency, unspecified; R68.89 Other general symptoms and signs; R82.90 Unspecified abnormal findings in urine
CPT/HCPCS: 36415; 80053; 80061; 81001; 82670; 82672; 82746; 83001; 83002; 83615; 83970; 84146; 84436; 84443; 85025; 85652; 86038; 86431; 86703; 86704; 86706; 86708; 86803; 87086; 87340

== ENCOUNTER → 2020-08-08 | Outpatient (CLI) | payer BC | END | disposition home or self-care (01) | LOC: LAB 17:11 | PROVIDERS: ATTEND Nurse Practitioner Family | DX: N39.0 Urinary tract infection, site not specified (principal) | CPT/HCPCS: 87086 ==